=== PATIENT | female | born 1965 | race Hispanic/Latino ===

== ENCOUNTER 2020-10-11 08:57 | Emergency (ER) | payer MEDICARE ==
--- NOTE | 2020-10-11 11:08 | Emergency Department Report ---
ED General Adult HPI - General Stated complaint: RT LEG SWOLLEN Time Seen by Provider: 10/11/20 10:58 - History of Present Illness Initial comments: Patient is 55 years old female with history of schizoaffective disorder. Patient was admitted to [facility] for suicidal ideation approximately 9 days ago. Patient brought to the emergency room today for evaluation of right lower extremity swelling. EMS reported that patient admosiel nieves to the psych facility with her current complaint. He stated that they tried Eliquis to see if it will help with no improvement. Patient denied any fever or chills. No chest pain or shortness of breath. Patient also denied any injury. - Related Data Home Medications Medication Instructions Recorded Confirmed Last Taken ARIPiprazole [Abilify TAB] 5 mg PO DAILY 10/11/20 10/11/20 Unknown Apixaban [Eliquis] 5 mg PO BID 10/11/20 10/11/20 Unknown AtorvaSTATin [Lipitor] 40 mg PO QHS 10/11/20 10/11/20 Unknown Benztropine [Cogentin] 2 mg PO DAILY 10/11/20 10/11/20 Unknown Escitalopram Oxalate [Lexapro] 20 mg PO DAILY 10/11/20 10/11/20 Unknown Fesoterodine Fumarate ER (Nf) 8 mg PO DAILY 10/11/20 10/11/20 Unknown [Toviaz ER (Nf)] Gabapentin [Neurontin] 800 mg PO QID 10/11/20 10/11/20 Unknown Linaclotide [Linzess] 290 mcg PO DAILY 10/11/20 10/11/20 Unknown [place] Carbonate [Eskalith] 300 mg PO QHS 10/11/20 10/11/20 Unknown Metoclopramide [Reglan] 10 mg PO QID 10/11/20 10/11/20 Unknown Olmesartan (Nf) [Benicar (Nf)] 20 mg PO QDAY 10/11/20 10/11/20 Unknown Pantoprazole [Protonix] 40 mg PO QDAY 10/11/20 10/11/20 Unknown QUEtiapine [SEROquel] 100 mg PO QDAY 10/11/20 10/11/20 Unknown Quetiapine Fumarate [SEROquel Xr] 600 mg PO QHS 10/11/20 10/11/20 Unknown carisoprodoL [Soma] 350 mg PO QID 10/11/20 10/11/20 Unknown clonazePAM [Klonopin] 1 mg PO BID 10/11/20 10/11/20 Unknown levETIRAcetam [Keppra TAB] 500 mg PO BID 10/11/20 10/11/20 Unknown Allergies Allergy/AdvReac Type Severity Reaction Status Date / Time lidocaine Allergy Unknown Verified 10/11/20 11:23 morphine Allergy Unknown Verified 10/11/20 11:23 ondansetron [From Zofran] Allergy Unknown Verified 10/11/20 11:23 Penicillins Allergy Unknown Verified 10/11/20 11:23 prochlorperazine Allergy Unknown Verified 10/11/20 11:23 Sulfa (Sulfonamide Allergy Unknown Verified 10/11/20 11:23 Antibiotics) ED Review of Systems ROS: Stated complaint: RT LEG SWOLLEN Other details as noted in HPI Comment: All other systems reviewed and negative Constitutional: denies: chills, fever Respiratory: denies: cough, shortness of breath, SOB with exertion, SOB at rest Cardiovascular: denies: chest pain, palpitations Gastrointestinal: denies: abdominal pain, nausea Musculoskeletal: denies: back pain Neurological: denies: headache, weakness, numbness, paresthesias, confusion Psychiatric: depression, suicidal thoughts ED Past Medical Hx - Medications Home Medications: Home Medications Medication Instructions Recorded Confirmed Last Taken Type ARIPiprazole [Abilify TAB] 5 mg PO DAILY 10/11/20 10/11/20 Unknown History Apixaban [Eliquis] 5 mg PO BID 10/11/20 10/11/20 Unknown History AtorvaSTATin [Lipitor] 40 mg PO QHS 10/11/20 10/11/20 Unknown History Benztropine [Cogentin] 2 mg PO DAILY 10/11/20 10/11/20 Unknown History Escitalopram Oxalate [Lexapro] 20 mg PO DAILY 10/11/20 10/11/20 Unknown History Fesoterodine Fumarate ER (Nf) 8 mg PO DAILY 10/11/20 10/11/20 Unknown History [Toviaz ER (Nf)] Gabapentin [Neurontin] 800 mg PO QID 10/11/20 10/11/20 Unknown History Linaclotide [Linzess] 290 mcg PO DAILY 10/11/20 10/11/20 Unknown History [place] Carbonate [Eskalith] 300 mg PO QHS 10/11/20 10/11/20 Unknown History Metoclopramide [Reglan] 10 mg PO QID 10/11/20 10/11/20 Unknown History Olmesartan (Nf) [Benicar (Nf)] 20 mg PO QDAY 10/11/20 10/11/20 Unknown History Pantoprazole [Protonix] 40 mg PO QDAY 10/11/20 10/11/20 Unknown History QUEtiapine [SEROquel] 100 mg PO QDAY 10/11/20 10/11/20 Unknown History Quetiapine Fumarate [SEROquel Xr] 600 mg PO QHS 10/11/20 10/11/20 Unknown History carisoprodoL [Soma] 350 mg PO QID 10/11/20 10/11/20 Unknown History clonazePAM [Klonopin] 1 mg PO BID 10/11/20 10/11/20 Unknown History levETIRAcetam [Keppra TAB] 500 mg PO BID 10/11/20 10/11/20 Unknown History ED Physical Exam - General General appearance: alert, in no apparent distress - Head Head exam: Present: atraumatic, normocephalic, normal inspection - Eye Eye exam: Present: normal appearance, PERRL - ENT ENT exam: Present: normal exam, normal orophraynx, mucous membranes moist - Neck Neck exam: Present: normal inspection, full ROM. Absent: tenderness, meningismus - Respiratory Respiratory exam: Present: normal lung sounds bilaterally - Cardiovascular Cardiovascular Exam: Present: regular rate, normal rhythm, normal heart sounds - GI/Abdominal GI/Abdominal exam: Present: soft, normal bowel sounds. Absent: distended, tenderness, guarding, rebound, rigid, organomegaly, mass, bruit, pulsatile mass, hernia - Extremities Exam Extremities exam: Present: normal capillary refill - Expanded Lower Extremity Exam Right Lower Leg exam: Present: tenderness, swelling, erythema. Absent: abrasion, laceration, ecchymosis, deformity, crepidus, dislocation, palpable cord, Anuj's sign Ankle exam: Present: tenderness, swelling Neuro vascular tendon exam: Present: no vascular compromise - Back Exam Back exam: Present: normal inspection, full ROM. Absent: CVA tenderness (R), CVA tenderness (L) - Neurological Exam Neurological exam: Present: alert, oriented X3, CN II-XII intact - Psychiatric Psychiatric exam: Present: normal mood - Skin Skin exam: Present: warm, intact, normal color ED Course Vital Signs 10/11/20 11:10 Temperature 97.4 F L Pulse Rate 75 Respiratory 20 Rate Blood Pressure 96/46 O2 Sat by Pulse 95 Oximetry ED Medical Decision Making - Lab Data Result diagrams: 10/11/20 11:18 10/11/20 11:18 - Medical Decision Making Patient is 55 years old female with history of schizoaffective disorder. Patient was admitted to [facility] for suicidal ideation approximately 9 days ago. Patient brought to the emergency room today for evaluation of right lower extremity swelling. EMS reported that patient admitted to the psych facility with her current complaint. He stated that they tried Eliquis to see if it will help with no improvement. Patient denied any fever or chills. No chest pain or shortness of breath. Patient also denied any injury. Patient remained stable in the ER. Labs reviewed and is unremarkable. Swelling could be from DVT patient given Eliquis in the emergency room 10 mg p.o. however we do not have Doppler ultrasound during the day on the weekend and there is no on-call tech to do the ultrasound. Patient will be discharged back to [facility] and given order for ultrasound tomorrow. There is also possibility of cellulitis and patient started clindamycin as patient is allergic to penicillin. Patient advised to return to the ER if she develop any chest pain or shortness of breath or fever or any other symptoms. Critical care attestation.: If time is entered above; I have spent that time in minutes in the direct care of this critically ill patient, excluding procedure time. ED Disposition Clinical Impression: Swelling of right lower extremity, Cellulitis of right leg Disposition: [id number] PSY HOSP/PSY UNIT Is pt being admited?: No Condition: Stable Instructions: Cellulitis, Adult, Deep Vein Thrombosis Referrals: PRIMARY CARE, [Primary Care Provider] - 3-5 Days
[2020-10-11 11:39] LABS: Basophils # (Auto) 0.1 K/mm3 (0.0-0.1); Basophils % (Auto) 1.2 % (0.0-1.8); Eosinophils # (Auto) 0.2 K/mm3 (0.0-0.4); Eosinophils % (Auto) 3.3 % (0.0-4.3); Hematocrit 40.1 % (30.3-42.9); Lymphocytes # (Auto) 1.3 K/mm3 (1.2-5.4); Mean Corpuscular HGB Conc 33 % (30-34); Mean Corpuscular Volume 90 fl (79-97); Monocytes # (Auto) 0.3 K/mm3 (0.0-0.8); Monocytes % (Auto) 5.6 % (0.0-7.3); Platelet Count 241 K/mm3 (140-440); Red Blood Count 4.48 M/mm3 (3.65-5.03); Red Cell Distribution Width 14.9 % (13.2-15.2)
[2020-10-11 11:46] LABS: BUN/Creatinine Ratio 24; Blood Urea Nitrogen 19 mg/dL (7-17); Calcium 10.9 mg/dL (8.4-10.2); Hemolysis Index 33
[2020-10-11 11:47] LABS: INR 1.18 (0.87-1.13)
[2020-10-11 11:48] LABS: Partial Thromboplastin Time 33.4 Sec. (24.2-36.6)
[2020-10-11 11:49] LABS: Alanine Aminotransferase 8 units/L (7-56); Albumin 2.9 g/dL (3.9-5)
[2020-10-11 11:54] LABS: Bilirubin,Direct < 0.2 mg/dL (0-0.2)
[2020-10-11] MEDS: APIXABAN 5 MG TAB PO ONE ×2 (13:11→13:13)
[2020-10-11 13:56] VITALS: BP 110/50
== END 2020-10-11 16:00 ==
LOC: ED 08:57
DX: L03.115 Cellulitis of right lower limb (principal); M79.89 Other specified soft tissue disorders; M19.91 Primary osteoarthritis, unspecified site; J44.9 Chronic obstructive pulmonary disease, unspecified; G43.909 Migraine, unspecified, not intractable, without status migrainosus; I10 Essential (primary) hypertension; F25.9 Schizoaffective disorder, unspecified; Z56.9 Unspecified problems related to employment; Z90.89 Acquired absence of other organs; Z98.890 Other specified postprocedural states; Z88.8 Allergy status to other drugs, medicaments and biological substances
CPT/HCPCS: 36415; 80048; 80076; 83880; 85025; 85610; 85730